=== PATIENT | male | born 1985 | race Caucasian/White ===

== ENCOUNTER 2022-02-12 19:46 | Emergency (ER) | payer MEDICARE, SELFPAY ==
[2022-02-12] VITALS (17 sets, daily range): BP systolic 117–159; BP diastolic 82–100; PULSE 72–95; RESP 14–26; TEMP 36.8; O2SAT 95–100
--- NOTE | ~2022-02-12 | XR_ITS ---
EXAMINATION: XR chest 2V 02/12/2022 20:30 INDICATION: Midsternal chest pain PROCEDURE: 2 view chest COMPARISON: No prior studies for comparison. FINDINGS: The lungs are clear. The cardiomediastinal silhouette is within normal limits. There are no pleural effusions. There is no pneumothorax suspected. IMPRESSION: 1: NO ACUTE CARDIOPULMONARY DISEASE. Reviewed, dictated and finalized at location A.
--- NOTE | 2022-02-12 19:53 | ECG_ITS ---
Measurements Intervals [place] Rate: 86 P: 16 MA: 132 QRS: 4 QRSD: 107 T: 21 QT: 338 QTc: 406 Interpretive Statements SINUS RHYTHM INCOMPLETE RIGHT BUNDLE BRANCH BLOCK [90+ ms QRS DURATION, TERMINAL R IN V1/V2, 40+ ms S IN I/aVL/V4/V5/V6] NO PREVIOUS ECG AVAILABLE FOR COMPARISON Electronically Signed On 02-13-2022 13:37:45 CDT by Ismael Mendoza M.D.
--- NOTE | 2022-02-12 20:01 | ED.CHESTPAIN ---
HPI - Chest Pain General Chief Complaint: Chest Pain <TA Valladares Last Filed: 02/13/22 00:48> Stated Complaint: CHEST PAIN <TA Valladares Last Filed: 02/13/22 00:48> Time Seen by Provider: 02/12/22 19:55 <TA Valladares Last Filed: 02/13/22 00:48> Source: patient <TA Valladares Last Filed: 02/13/22 00:48> Mode of arrival: ambulatory <TA Valladares Last Filed: 02/13/22 00:48> Limitations: no limitations <TA Valladares Last Filed: 02/13/22 00:48> History of Present Illness HPI narrative: This is a 37 year old male that presents to the ER for chest pain ongoing over the last hour. Reports he was walking when the pain started. Reports an achy pain that then was sharp. Now reports a dull aching pain. Denies shortness of breath, vomiting, or lower extremity edema. <TA Valladares Last Filed: 02/13/22 00:48> Related Data Allergies/Adverse Reactions: Allergies Allergy/AdvReac Type Severity Reaction Status Date / Time haloperidol [From Haldol] AdvReac Hallucinati Verified 02/12/22 20:42 ng quetiapine [From Seroquel] AdvReac Hallucinati Verified 02/12/22 20:42 ng <TA Valladares Last Filed: 02/13/22 00:48> Review of Systems Review of Systems: CONSTITUTIONAL: Denies fever CARDIOVASCULAR: Reports chest pain. Denies palpitations, or edema. RESPIRATORY: Denies dyspnea. GASTROINTESTINAL: Denies nausea, vomiting <TA Valladares Last Filed: 02/13/22 00:48> All systems reviewed & are unremarkable except as noted in HPI and below <TA Valladares Last Filed: 02/13/22 00:48> [facility] Past Medical History Medical History: Medical History (Updated 02/13/22 @ 00:46 by Diane Harkins PA-C) History of anxiety History of post traumatic stress disorder <Diane Harkins PA-C - Last Filed: 02/13/22 00:48> Social History Social History: Social History (Updated 02/12/22 @ 20:15 by Diane Harkins PA-C) Smoking status: Current every day smoker Alcohol intake: current Substance use: current Substance use type: marijuana and other Other substance usage details: mushrooms <Diane Harkins PA-C - Last Filed: 02/13/22 00:48> Exam Narrative: GENERAL: Well-appearing, well-nourished, and in no acute distress. HEAD: Normocephalic, atraumatic. EYES: EOMI. CHEST: Clear to auscultation. No respiratory distress. No wheezes rales or rhonchi. Tender to palpation of the left chest wall in the area of patient's pain HEART: Regular rate and rhythm. No murmur heard. Normal peripheral pulses. EXTREMITIES: Normal range of motion. No edema. SKIN: Warm, dry, no rash. NEURO: No focal deficits. Alert and oriented x3. PSYCH: Normal mood and affect <Diane Harkins PA-C - Last Filed: 02/13/22 00:48> Course CHORUS MASTER/PA Physician Supervision For this patient encounter, I reviewed the CHORUS MASTER or PA documentation, treatment plan, and medical decision making <Stewart Hill MD - Last Filed: 02/13/22 01:04> Vital Signs Vital signs: Vital Signs Temperature 98.3 F 02/12/22 19:49 Pulse Rate 89 02/12/22 19:49 Respiratory Rate 21 H 02/12/22 19:49 Blood Pressure 142/83 H 02/12/22 19:49 Pulse Oximetry 99 02/12/22 19:49 Oxygen Delivery Room Air 02/12/22 19:49 Temperature 98.3 F 02/12/22 19:49 Pulse Rate 72 02/12/22 22:40 Respiratory Rate 16 02/12/22 22:40 Blood Pressure 132/82 02/12/22 22:40 Pulse Oximetry 99 02/12/22 22:40 Oxygen Delivery Room Air 02/12/22 19:49 <Diane Harkins PA-C - Last Filed: 02/13/22 00:48> Vital Signs Temperature 98.3 F 02/12/22 19:49 Pulse Rate 89 02/12/22 19:49 Respiratory Rate 21 H 02/12/22 19:49 Blood Pressure 142/83 H 02/12/22 19:49 Pulse Oximetry 99 02/12/22 19:49 Oxygen Delivery Room Air 02/12/22 19:49 Temperature 98.3 F 02/12/22 19:49 Pulse Rate 72 02/12/22 22:40 Re
[2022-02-12] MEDS: KETOROLAC 15 MG/ML VIAL (*BKC) IV PUSH (20:45)
[2022-02-12 21:13] LABS: Basophils Absolute Auto 0.1 K/mm3 (0.0-0.1); Basophils Percent Auto 0.8 % (0.2-1.2); Eosinophils Absolute Auto 0.5 K/mm3 (0-0.3); Eosinophils Percent Auto 4.1 % (0-4.4); Hematocrit 39.9 % (42.0-52.0); Hemoglobin 13.9 g/dL (14.0-18.0); Immature Granulocyte Absolute 0.04 K/mm3 (0.00-0.031); Immature Granulocyte Percent A 0.3 % (0-0.5); Lymphocytes Absolute Auto 3.53 K/mm3 (0.9-3.2); Lymphocytes Percent Auto 26.7 % (18.3-44.2); Mean Corpuscular HGB Conc 34.8 g/dl (32-36); Mean Corpuscular Hemoglobin 31.2 pg (26-34); Mean Corpuscular Volume 89.7 fl (80-100); Mean Platelet Volume 9.2 fl (7.4-10.4); Monocytes Absolute Auto 0.6 K/mm3 (0.1-0.6); Monocytes Percent Auto 4.7 % (2.6-8.5); Neutrophils Absolute Auto 8.4 K/mm3 (1.3-6.7); Neutrophils Percent Auto 63.4 % (45.5-73.1); Platelet Count Result 272 k/mm3 (150-375); Red Blood Count 4.45 M/mm3 (4.6-6.20); Red Cell Distribution Width 12.7 % (11.5-14.5); White Blood Count 13.2 K/mm3 (4.5-10.0)
[2022-02-12 21:23] LABS: Alanine Aminotransferase 26 U/L (6-50); Albumin Level 4.4 g/dL (3.5-5.1); Alkaline Phosphatase 57 U/L (38-126); Anion Gap 11 mmol/L (8-16); Aspartate Amino Transferase 28 U/L (17-59); Bilirubin,Total 0.3 mg/dL (0.2-1.3); Blood Urea Nitrogen 16 mg/dL (9-20); Calcium 9.2 mg/dL (8.4-10.2); Carbon Dioxide 25 mmol/L (22-30); Chloride 106 mmol/L (98-107); Estimated CRCL calculation 137 ml/min; Estimated Glomerular Filt Rate > 60; Glucose 105 mg/dL (65-110); Lipase 134 U/L (23-300); Potassium 3.6 mmol/L (3.4-5.0); Sodium 142 mmol/L (137-145)
[2022-02-12 21:28] LABS: INR 1.1; Prothrombin Time 13.4 Seconds (11.1-14.7)
[2022-02-12 21:29] LABS: Partial Thromboplastin Time 24.4 SECONDS (22.3-36.8)
[2022-02-12 21:35] LABS: Troponin I 0.021 ng/mL (0.000-0.034)
[2022-02-12 23:30] LABS: Troponin I 0.022 ng/mL (0.000-0.034)
== END 2022-02-13 01:42 | disposition home or self-care (01) ==
PROVIDERS: Emergency Provider Emergency Medicine
DX: R07.9 Chest pain, unspecified (principal); F17.200 Nicotine dependence, unspecified, uncomplicated; I45.10 Unspecified right bundle-branch block
CPT/HCPCS: 36415; 71046; 80053; 83690; 84484; 85025; 85610; 85730; 93005; 96374; 99284; J1885